=== PATIENT | female | born 1975 | race African-American/Black ===

== ENCOUNTER 2017-06-21 04:53 | Emergency (ER) | payer OTHER, SELFPAY ==
[2017-06-21] MEDS ORDERED: Ondansetron HCl/PF 4 MG/2 ML Vial ONE (05:34)
[2017-06-21 05:58] LABS: Hemoglobin 10.4 g/dL (12.0-16.0); Mean Corpuscular HGB CONC 31.7 g/dL (32.0-36.0); Mean Corpuscular Hemoglobin 22.7 pg (27.0-31.0); Mean Corpuscular Volume 71.5 fl (81.0-99.0); Mean Platelet Volume 7.3 fL (7.4-10.4); Platelet Count 486 thou/uL (130-400); RBC Distribution Width 16.8 % (11.5-14.5); Red Blood Cell (RBC) Count 4.61 mill/uL (4.20-5.40); White Blood Cell (WBC) Count 13.2 thou/uL (4.8-10.8)
[2017-06-21 06:06] LABS: ALT (SGPT) 11 U/L (8-55); AST (SGOT) 21 U/L (5-34); Albumin 4.5 g/dL (3.5-5.0); Alkaline Phosphatase 89 U/L (40-150); Anion Gap 15 mmol/L (10-20); BUN (Urea Nitrogen) 13 mg/dL (7.0-18.7); Bilirubin, Total 0.4 mg/dL (0.2-1.2); CKMB 1.7 ng/mL (0-6.6); Calc. Creatinine Clearance 0 mL/min (70-130); Calcium 9.2 mg/dL (7.8-10.44); Carbon Dioxide 21 mmol/L (22-29); Chloride 105 mmol/L (98-107); Estimated GFR-MDRD 82; Glucose 116 mg/dL (70-105); Lipase 39 U/L (8-78); Potassium 4.1 mmol/L (3.5-5.1); Protein, Total 8.5 g/dL (6.0-8.3); Sodium 137 mmol/L (136-145); Troponin I Less than 0.010 ng/mL (< 0.028)
[2017-06-21] MEDS ORDERED: Promethazine HCl 25 MG/ML VIAL ONE (06:18)
[2017-06-21 06:28] LABS: #Eosinphils 0.1 thou/uL (0.0-0.7); #Lymphocytes 1.1 thou/uL (1.20-3.40); #Monocytes 0.4 thou/uL (0.11-0.59); #Neutrophils 11.5 thou/uL (1.40-6.50); %Basophils 0.1 % (0.0-1.0); %Eosinophils 0.8 % (0.0-10.0); %Lymphocytes 8.2 % (21.0-51.0); %Monocytes 3.4 % (0.0-10.0); %Neutrophils 87.6 % (42.0-75.0); Anisocytosis SLIGHT = 6-15 cells (100X) (0-5/hpf); MDiff Complete? YES; PLT Morphology Comment Appears Adequate
--- NOTE | 2017-06-21 08:06 | RAD ---
ONE VIEW CHEST: COMPARISON: 12/26/10. HISTORY: Chest pain and nausea. COMPARISON: None. FINDINGS: Normal cardiac silhouette. The lungs and pleural spaces are clear. No pneumothorax or osseous abnor malities. IMPRESSION: No acute cardiopulmonary process. POS: [facility]
== END 2017-06-21 06:55 | disposition home or self-care (01) ==
LOC: ERS 04:53
DX: R11.2 Nausea with vomiting, unspecified (principal); R07.9 Chest pain, unspecified; I10 Essential (primary) hypertension
CPT/HCPCS: 71045; 80053; 82553; 83690; 84484; 85025; 93005; 96365; 96375; J2405; J2550

== ENCOUNTER 2018-05-15 14:48 | Emergency (ER) | payer OTHER | END 2018-05-15 15:40 | disposition home or self-care (01) | LOC: SCSER 14:48 | DX: K03.81 Cracked tooth (principal); K04.5 Chronic apical periodontitis; I10 Essential (primary) hypertension | CPT/HCPCS: 99282 ==

== ENCOUNTER 2020-03-09 08:02 | Outpatient (CLI) | payer BC ==
--- NOTE | 2020-03-09 08:23 | CT ---
CT CERVICAL SPINE WITHOUT CONTRAST: HISTORY: Trauma. Pain. COMPARISON: None. FINDINGS: No craniocervical dissociation. Appropriate alignment of the lateral masses of C1 and C2. Intact odon toid process. Appropriate alignment of the facets. Straightening of cervical lordosis is presumed to be due to fusion. There is an anterior fusion plate with transvertebral body screw at C4, C5 and C6. The left and right screw at C6 are broken. C4-C5 and C5-C6 prosthesis. Soft tissue neck structures: No mass, lymphadenopathy or hematoma. No prevertebral soft tissue swelli ng. Upper mediastinum and lung apices: Unremarkable. Central spinal canal: Limited evaluation by the lack of intrathecal contrast. No significant central canal stenosis throughout the spine. There are broad-based osteophyte bridges at C4-C5 and C5-C6 with mild central canal stenosis. There is neural foraminal narrowing at C4-C5, C5-C6. Vertebral bodies: Cervical spine vertebral body height is maintained. No fracture. IMPRESSION: 1. Multilevel degenerative changes of the cervical neural foramina as detailed above. 2. Cervical fusion as detailed above. The left and right C6 screws are fractured. 3. Straightening of cervical lordosis is presumed to be due to fusion. 4. No evidence of cervical spine fracture. Transcribed Date/Time: 03/09/2020 8:36 AM
== END 2020-03-09 08:03 | disposition home or self-care (01) ==
LOC: BICCT 08:02
PROVIDERS: ATTEND Neurological Surgery
DX: M54.2 Cervicalgia (principal); M47.812 Spondylosis without myelopathy or radiculopathy, cervical region; Z98.1 Arthrodesis status
CPT/HCPCS: 72125

== ENCOUNTER 2020-03-23 11:28 | Outpatient (CLI) | payer BC ==
--- NOTE | 2020-03-23 12:00 | RAD ---
EXAM: Flexion and extension lateral projections of the cervical spine DATE: 03/23/2020 12:00 AM INDICATION: Neck pain COMPARISON: CT of the cervical spine dated March 09, 2020 FINDING: The ACDF spanning C4-C6 appears similar to the comparison CT. The fractured right C6 ACDF s crew is unchanged. Spinal alignment is preserved. No definite abnormal translational motion is seen on the flexion-extension lateral projections. There is stable moderate disc degenerative disease at C 3-4 and C6-7. There is stable multilevel mild facet osteoarthritic change. IMPRESSION:No abnormal translational motion. Stable ACDF spanning C4-C6 with a fractured right C6 ACD F screw.
== END 2020-03-23 11:29 | disposition home or self-care (01) ==
LOC: BICRAD 11:28
PROVIDERS: ATTEND Neurological Surgery
DX: M54.2 Cervicalgia (principal); Z98.1 Arthrodesis status
CPT/HCPCS: 72040

== ENCOUNTER 2020-10-05 13:33 | Emergency (ER) | payer BC ==
[2020-10-05] MEDS ORDERED: Iopamidol 370 76% 100 ML VIAL ONE (14:06)
[2020-10-05 15:10] LABS: Hemoglobin 8.9 g/dL (12.0-16.0); Mean Corpuscular HGB CONC 30.7 g/dL (32.0-36.0); Mean Corpuscular Hemoglobin 20.3 pg (27.0-31.0); Mean Corpuscular Volume 66.3 fL (78.0-98.0); Mean Platelet Volume 9.3 fL (7.4-10.4); Platelet Count 731 thou/uL (130-400); RBC Distribution Width 19.3 % (11.5-14.5); Red Blood Cell (RBC) Count 4.37 mill/uL (4.20-5.40); White Blood Cell (WBC) Count 9.4 thou/uL (4.8-10.8)
[2020-10-05] MEDS ORDERED: Ondansetron ODT 4 MG TAB ONE (15:15)
[2020-10-05 15:26] LABS: Anisocytosis SLIGHT = 6-15 cells (100X) (0-5/hpf); Elliptocytes SLIGHT = 2-5 cells (100X) (0-1/hpf); Lymphocytes 10 % (21-51); MDiff Complete? YES; Microcytosis MODERATE=15-30 cells (100X) (0-5/hpf); Monocytes 6 % (0-10); Neutrophil 82 % (42-75); Platelet Morphology Comment Appears Increased; Poikilocytosis SLIGHT = 6-15 cells (100X) (0-5/hpf); Polychromasia SLIGHT = 2-3 cells (100X) (0-2/hpf); Tear Drops SLIGHT = 2-5 cells (100X) (0-1/hpf)
[2020-10-05 15:28] LABS: ALT (SGPT) 9 U/L (8-55); AST (SGOT) 18 U/L (5-34); Albumin 4.4 g/dL (3.5-5.0); Alkaline Phosphatase 80 U/L (40-110); Anion Gap 16 mmol/L (10-20); BUN (Urea Nitrogen) 6 mg/dL (7.0-18.7); Bilirubin, Total 0.7 mg/dL (0.2-1.2); CK (CPK) 74 U/L (29-168); Calc. Creatinine Clearance 0 mL/min (70-130); Calcium 9.1 mg/dL (7.8-10.44); Carbon Dioxide 19 mmol/L (22-29); Chloride 106 mmol/L (98-107); Globulin 4.2 g/dL (2.4-3.5); Glucose 99 mg/dL (70-105); Lipase 223 U/L (8-78); Potassium 3.8 mmol/L (3.5-5.1); Protein, Total 8.6 g/dL (6.0-8.3); Sodium 137 mmol/L (136-145)
[2020-10-05] MEDS ORDERED: Morphine 4 MG/ML VIAL ONE ×2 (16:24→17:54)
[2020-10-05] MEDS ORDERED: Ondansetron PF 4 MG/2 ML Vial ONE ×2 (16:25→16:59)
[2020-10-05] MEDS ORDERED: HYDROcodone/Acetaminophen 5/325 mg Tablet ONE (16:57)
[2020-10-05] MEDS ORDERED: Promethazine HCl 25 MG/ML VIAL ONE (17:54)
[2020-10-05 19:01] LABS: BHCG - Serum Negative (NEGATIVE); Pregs Control Background? CLEAR/WHITE (CLR/WHITE); Pregs Control Bar Appear? YES (CONTROL BAR)
== END 2020-10-05 20:15 | disposition home or self-care (01) ==
LOC: ERS 13:33
DX: K85.90 Acute pancreatitis without necrosis or infection, unspecified (principal); I25.10 Atherosclerotic heart disease of native coronary artery without angina pectoris; I49.9 Cardiac arrhythmia, unspecified; G43.909 Migraine, unspecified, not intractable, without status migrainosus; I10 Essential (primary) hypertension
CPT/HCPCS: 36415; 71045; 74177; 80053; 82550; 83690; 84484; 84703; 85025; 93005; 96365; 96375; 96376; J2270; J2405; J2550; Q0162; Q9967